=== PATIENT | male | born 1935 | race Caucasian/White ===

== ENCOUNTER 2018-04-05 10:39 | Inpatient (IN) | payer OTHER, MEDICAID ==
[~2018-04-05] VITALS: Ht 160 cm; Wt 63.5 kg
[2018-04-05 10:45] VITALS: BP 137/90
--- NOTE | 2018-04-05 10:52 | NUR ---
PT AMBULATES TO BED 12
--- NOTE | 2018-04-05 10:53 | NUR ---
82Y/F BIB FAMILY FOR C/O DIARRHEA AND "CRAMPING" ABD PAIN 6/10 FOR 3 DAYS. DENIES N/V/D; SKIN IS PINK/WARM/DRY; AAOX4 WITH EVEN AND STEADY GAIT; VSS; PATIENT POSITIONED FOR COMFORT; HOB ELEVATED; BEDRAILS UP X1; BED DOWN. ER MD MADE AWARE OF PT STATUS.
[2018-04-05] MEDS ORDERED: NACL 0.9% 1,000 ML IV SCH (11:44)
[2018-04-05] MEDS ORDERED: MORPHINE SULFATE 2 MG/ML SYR IVP ONE (11:45)
[2018-04-05] MEDS ORDERED: LEVOFLOXACIN 500 MG/D5W PREMIX 100 ML IV ONE (11:45)
[2018-04-05] MEDS ORDERED: ONDANSETRON 4 MG/2 ML VIAL IVP ONE (11:45)
[2018-04-05] MEDS ORDERED: KETOROLAC 15 MG/ML VIAL IVP ONE (11:45)
--- NOTE | 2018-04-05 11:49 | NUR ---
Patient being evaluated by physician at bedside.
--- NOTE | 2018-04-05 12:21 | NUR ---
PT TAKEN TO CT
--- NOTE | 2018-04-05 12:40 | NUR ---
PT BACK FROM CT
[2018-04-05 12:51] LABS: BASOPHILS # (AUTO) 0.1 K/uL (0.00-0.22); BASOPHILS % (AUTO) 1.2 % (0.0-2.0); EOSINOPHILS # (AUTO) 0.3 K/uL (0-0.4); EOSINOPHILS % (AUTO) 5.3 % (0.0-4.0); HEMATOCRIT 32.7 % (36-52); HEMOGLOBIN 11.1 g/dL (12.0-18.0); LYMPHOCYTES # (AUTO) 1.3 K/uL (2.0-11.5); LYMPHOCYTES % (AUTO) 20.9 % (20.5-51.1); MEAN CORPUSCULAR HEMOGLOBIN 32 pg (27-31); MEAN CORPUSCULAR HGB CONC 34 g/dL (33-37); MEAN CORPUSCULAR VOLUME 94.4 fL (80-94); MONOCYTES # (AUTO) 0.5 K/uL (0.8-1.0); MONOCYTES % (AUTO) 7.9 % (1.7-9.3); NEUTROPHILS % (AUTO) 64.7 % (42.2-75.2); PLATELET COUNT (AUTO) 209 K/uL (140-450); RED BLOOD CELL COUNT(AUTO) 3.46 MIL/uL (4.20-6.10); RED CELL DISTRIBUTION WIDTH 12.7 % (11.6-13.7); WHITE BLOOD COUNT (AUTO) 6.2 K/uL (4.8-10.8)
[2018-04-05 13:08] LABS: ALBUMIN 3.3 g/dL (3.4-5.0); AMYLASE 45 U/L (25-115); ANION GAP 8.4 (8-16); ASPARTATE AMINOTRANSFERASE 17 U/L (15-37); CARBON DIOXIDE 28.4 mmol/L (21-32); CHLORIDE 106 mmol/L (98-107); CREATININE 1.5 mg/dL (0.7-1.3); GLUCOSE 95 mg/dL (74-106); LIPASE 154 U/L (73-393); POTASSIUM 3.8 mmol/L (3.5-5.1); SODIUM SERUM 139 mmol/L (136-145); TOTAL BILIRUBIN 2.1 mg/dL (0.0-1.0); UREA NITROGEN, BLOOD 14 mg/dL (7-18)
--- NOTE | 2018-04-05 13:30 | NUR ---
Patient appears to be resting comfortably in bed.
[2018-04-05] MEDS ORDERED: ZOLPIDEM 5 MG TAB PO PRN (13:35)
[2018-04-05] MEDS ORDERED: ACETAMINOPHEN 325 MG TAB PO PRN (13:35)
[2018-04-05 13:41] LABS: ACETONE, SERUM NEGATIVE (NEGATIVE)
[2018-04-05 14:00] LABS: APPEARANCE,URINE CLEAR (CLEAR); BILIRUBIN,URINE NEGATIVE (NEGATIVE); BLOOD, URINE 1+ (NEGATIVE); COLOR,URINE YELLOW (YELLOW); LEUKOCYTE ESTERASE ,URINE NEGATIVE (NEGATIVE); NITRITE, URINE NEGATIVE (NEGATIVE); UGLUCOSE NEGATIVE (NEGATIVE)
[2018-04-05 14:06] LABS: PROTHROMBIN TIME 11.4 secs (10.8-13.4)
[2018-04-05 14:12] LABS: RBC,URINE 11-20 (MOD) /HPF (0-5); WBC,URINE 0-5 (RARE) /HPF (0-5)
--- NOTE | 2018-04-05 15:25 | NUR ---
Patient will be admitted to care of . Admited to MED SURG. Will go to room 110-A. Belongings list completed. Report to ALBA FINN.
[2018-04-05 15:50] VITALS: BP 125/86
--- NOTE | 2018-04-05 15:50 | NUR ---
PT BROUGHT IN FROM ER IN [facility], REPORT RECEIVED FROM ER EN, PT AWAKE ALERT, RESP EVEN UNLABORED ON ROOM AIR, SKIN WARM DRY COLRO WNL, PT ORIENTED TO ROOM AND FLOOR, VITALS TAKEN, PLAN OF CARE REVIEWED, DAUGHTER AT BEDSIDE, WILL CONTINUE TO MONITOR.
--- NOTE | 2018-04-05 16:10 | NUR ---
DR RANKIN NOTIFIED OF PT'S HEART RATE 45-50, BP 125/86, PT AWAKE ALERT DENIES CHEST PAIN, DENIES SOB, DENIES ANY CARDIAC HISTORY, DENIES TAKING ANY MEDS AT HOME.
[2018-04-05] MEDS: NACL 0.9% 500 ML IV SCH (17:19)
[2018-04-05 18:27] LABS: FREE T4 (FREE THYROXINE) 0.85 ng/dL (0.76-1.46); PHOSPHORUS 3.6 mg/dL (2.5-4.9); THYROID STIMULATING HORMONE 1.18 uIU/mL (0.34-3.74)
--- NOTE | 2018-04-05 19:30 | NUR ---
REPORT GIVEN TO LAUNDRY FOLDER NURSE, PT IN STABLE CONDITION.
--- NOTE | 2018-04-05 19:31 | NUR ---
RECEIVED REPORT AT PT BEDSIDE FROM DAY SHIFT RN, PT IS A/OX4, ON ROOM AIR, PAKISTANI SPEAKING. RESPIRATIONS EVEN AND UNLABORED. PT SKIN IS INTACT, PT AMBULATES WITH STANDBY ASSISTANCE. 22G IV TO LEFT AC, ASYMPTOMATIC, INTACT AND PATENT. UPDATED BOARD. DISCUSSED PLAN OF CARE WITH PT, PT VERBALIZED UNDERSTANDING. VITAL SIGNS WITHIN NORMAL LIMITS. PT STABLE, NO SIGNS OF DISTRESS NOTED AT THIS TIME. BED IN LOWEST POSITION, BED ALARM ON. CALL LIGHT WITHIN REACH, WILL CONTINUE TO MONITOR.
[2018-04-05 20:00] VITALS: BP 107/72
[2018-04-05] MEDS: metroNIDAZOLE 500 MG/NS PREMIX 100 ML IV SCH (20:54)
--- NOTE | 2018-04-05 21:00 | NUR ---
IV FLAGYL NOW INFUSING, PT TOLERATING WELL. NO SIGNS/SYMPTOMS OF ALLERGIC REACTION. NO SIGNS OF DISTRESS NOTED AT THIS TIME. BED IN LOWEST POSITION, BED ALARM ON. CALL LIGHT WITHIN REACH, WILL CONTINUE TO MONITOR.
[2018-04-06] VITALS (7 sets, daily range): BP systolic 101–111; BP diastolic 61–73
--- NOTE | 2018-04-06 | NUR ---
VITAL SIGNS WITHIN NORMAL LIMITS. PT STABLE, NO SIGNS OF DISTRESS NOTED AT THIS TIME. BED IN LOWEST POSITION, BED ALARM ON. CALL LIGHT WITHIN REACH, WILL CONTINUE TO MONITOR.
[2018-04-06] MEDS: metroNIDAZOLE 500 MG/NS PREMIX 100 ML IV SCH ×3 (05:57→20:15)
--- NOTE | 2018-04-06 06:00 | NUR ---
IV FLAGYL NOW INFUSING, PT TOLERATING WELL. NO SIGNS OF DISTRESS NOTED AT THIS TIME. BED IN LOWEST POSITION, BED ALARM ON. CALL LIGHT WITHIN REACH, WILL CONTINUE TO MONITOR.
[2018-04-06 07:17] LABS: BASOPHILS # (AUTO) 0.1 K/uL (0.00-0.22); BASOPHILS % (AUTO) 0.8 % (0.0-2.0); EOSINOPHILS # (AUTO) 0.4 K/uL (0-0.4); EOSINOPHILS % (AUTO) 6.8 % (0.0-4.0); HEMATOCRIT 31.5 % (36-52); HEMOGLOBIN 10.7 g/dL (12.0-18.0); LYMPHOCYTES # (AUTO) 1.3 K/uL (2.0-11.5); LYMPHOCYTES % (AUTO) 20.7 % (20.5-51.1); MEAN CORPUSCULAR HEMOGLOBIN 32 pg (27-31); MEAN CORPUSCULAR HGB CONC 34 g/dL (33-37); MEAN CORPUSCULAR VOLUME 94.6 fL (80-94); MONOCYTES # (AUTO) 0.6 K/uL (0.8-1.0); MONOCYTES % (AUTO) 9.5 % (1.7-9.3); NEUTROPHILS # (AUTO) 3.9 K/uL (1.8-7.7); NEUTROPHILS % (AUTO) 62.2 % (42.2-75.2); PLATELET COUNT (AUTO) 195 K/uL (140-450); RED BLOOD CELL COUNT(AUTO) 3.33 MIL/uL (4.20-6.10); WHITE BLOOD COUNT (AUTO) 6.3 K/uL (4.8-10.8)
--- NOTE | 2018-04-06 07:21 | NUR ---
ENDORSED PT, IN STABLE CONDITION, TO DAY SHIFT RN, FOR CONTINUITY OF CARE.
--- NOTE | 2018-04-06 08:00 | NUR ---
PATIENT ALERT AND ABLE TO MAKE NEEDS KNOWN. PALESTINIAN SPEAKING.A/OX4. NO ACUTE DISTRESS NOTED. NO SOB. RESP EVEN AND UNLABORED. LUNG SOUNDS CLEAR ON ROOM AIR. BOWEL SOUNDS ACTIVE X 4 QUADS. PATIENT WITH RAC 22G WITH NS RUNNING AT 10ML/HR.PATIENT ON REGULAR DIET. TOLERATING WELL. DENIES EPISODES OF DIARHEA OR PAIN THIS AM. SKIN INTACT. SON AT BEDSIDE. DISCUSSED PLAN OF CARE WITH PATIENT AT BEDSIDE. FREQUENT VISUAL CHECKS. CALL LIGHT WITHIN REACH. WILL CONT TO MONITOR.
[2018-04-06 08:07] LABS: ANION GAP 10.5 (8-16); CARBON DIOXIDE 28.7 mmol/L (21-32); CHLORIDE 107 mmol/L (98-107); CREATININE 1.7 mg/dL (0.7-1.3); GLUCOSE 85 mg/dL (74-106); POTASSIUM 4.2 mmol/L (3.5-5.1); SODIUM SERUM 142 mmol/L (136-145); UREA NITROGEN, BLOOD 17 mg/dL (7-18)
[2018-04-06 08:08] LABS: CHOL/HDL RATIO 2.6 (1-4.5); PHOSPHORUS 3.9 mg/dL (2.5-4.9)
--- NOTE | 2018-04-06 08:44 | NUR ---
PATIENT HAS BEEN SCREENED AND CATEGORIZED HIGH NUTRITION RISK. PATIENT WILL BE SEEN WITHIN 1-2 DAYS OF ADMISSION. 04/06/18 04/07/[address]
[2018-04-06] MEDS: LACTOBACILLUS RHAMNOSUS GG 1 EACH CAP PO SCH (08:50)
[2018-04-06] MEDS ORDERED: CLINICAL MONITORING MC SCH (09:00)
--- NOTE | 2018-04-06 10:30 | NUR ---
PATIENT IN BED WITH FAMILY AT BEDSIDE WATCHING TV. NO ACUTE DISTRESS NOTED. WILL CONT TO MONITOR.
--- NOTE | 2018-04-06 13:10 | NUR ---
PATIENT IN BED HAD LUNCH AND TOLERATED WELL. NO C/O GI DISTRESS. NO LOOSE STOOL. WILL CONT TO MONITOR.
[2018-04-06] MEDS: NACL 0.9% 500 ML IV SCH (13:31)
--- NOTE | 2018-04-06 14:00 | NUR ---
DR GOLDSTEIN IN UNIT TO SEE PATIENT WITH NEW ORDERS FOR COLLECTION OF STOOL FOR C DIFF TOXIN AND OCCULT BLOOD. PATIENT MADE AWARE. HAT PLACED IN RESTROOM FOR COLLECTION.
--- NOTE | 2018-04-06 15:29 | NUR ---
04/06/18 RD INITIAL ASSESSMENT COMPLETED PLEASE REFER TO NUTRITION ASSESSMENT UNDER CARE ACTIVITY FOR ESTIMATED NUTRITIONAL NEEDS. 1. CONTINUE REGULAR DIET TOLERATED 2. RECOMMEND ENSURE CLEAR TID 3. PROVIDE DIET EDUCATION ABOUT COLITIS 4. RD TO FOLLOW-UP 3-5 DAYS, MODERATE RISK ROMINA ABEL, BISI
--- NOTE | 2018-04-06 16:30 | NUR ---
COLLECTED C DIFF TOXIN AND OCCULT BLOOD SAMPLE MUSHY MEDIUM BROWN STOOL. NO MUCUS OR BLOOD NOTED. WILL CONT TO MONITOR.
--- NOTE | 2018-04-06 19:10 | NUR ---
ENDORSED REPORT TO NATIONAL SECRETARY NURSE AT BEDSIDE FOR CONTINUITY OF CARE. PATIENT STABLE.
--- NOTE | 2018-04-06 19:30 | NUR ---
RECEIVED REPORT FROM DAYSHIFT NURSE AT BEDSIDE FOR CONTINUITY OF CARE. PT AAOX4. PT SPEAKS GERMAN. IV NOTED RAC 22G NS 10ML/HR. PT IS ON BEDREST. BED LOWERED CALL LIGHT WITHIN REACH. WILL CONTINUE TO MONITOR.
--- NOTE | 2018-04-06 21:32 | NUR ---
PT AWARE OF NPO AFTER MIDNIGHT. WILL CONTINUE TO MONITOR.
[2018-04-07 04:00] VITALS: BP 102/69
[2018-04-07] MEDS: metroNIDAZOLE 500 MG/NS PREMIX 100 ML IV SCH ×2 (04:07→13:05)
[2018-04-07 06:55] LABS: BASOPHILS # (AUTO) 0.1 K/uL (0.00-0.22); EOSINOPHILS # (AUTO) 0.6 K/uL (0-0.4); EOSINOPHILS % (AUTO) 5.7 % (0.0-4.0); HEMATOCRIT 35.9 % (36-52); HEMOGLOBIN 12.3 g/dL (12.0-18.0); LYMPHOCYTES % (AUTO) 19.4 % (20.5-51.1); MEAN CORPUSCULAR HEMOGLOBIN 32 pg (27-31); MEAN CORPUSCULAR HGB CONC 34 g/dL (33-37); MEAN CORPUSCULAR VOLUME 93.8 fL (80-94); MONOCYTES # (AUTO) 0.7 K/uL (0.8-1.0); MONOCYTES % (AUTO) 6.6 % (1.7-9.3); NEUTROPHILS # (AUTO) 6.8 K/uL (1.8-7.7); NEUTROPHILS % (AUTO) 67.3 % (42.2-75.2); PLATELET COUNT (AUTO) 218 K/uL (140-450); RED BLOOD CELL COUNT(AUTO) 3.83 MIL/uL (4.20-6.10); RED CELL DISTRIBUTION WIDTH 12.8 % (11.6-13.7); WHITE BLOOD COUNT (AUTO) 10.1 K/uL (4.8-10.8)
[2018-04-07 07:18] LABS: ANION GAP 10.6 (8-16); CARBON DIOXIDE 30.6 mmol/L (21-32); CHLORIDE 106 mmol/L (98-107); CREATININE 1.7 mg/dL (0.7-1.3); GLUCOSE 97 mg/dL (74-106); POTASSIUM 4.2 mmol/L (3.5-5.1); SODIUM SERUM 143 mmol/L (136-145); UREA NITROGEN, BLOOD 16 mg/dL (7-18)
[2018-04-07 07:28] LABS: MAGNESIUM 1.9 mg/dL (1.8-2.4); PHOSPHORUS 3.4 mg/dL (2.5-4.9)
--- NOTE | 2018-04-07 07:31 | NUR ---
RECEIVED REPORT FROM NIGHTSHIFT NURSE AT BEDSIDE. PATIENT IS AWAKE AT THIS TIME . PATIENT IS ALERT AND ORIENTED X4. PATIENT'S SON AT BEDSIDE. NO DISTRESS NOTED. PATIENT DOES NOT COMPLAIN OF PAIN. PATIENT HAS AN IV ON RIGHT AC 22G INFUSING 10 ML NORMAL SALINE. UPDATED BOARD IN PATIENT'S ROOM. LOWERED BED TO LOWEST SETTING. PUT CALL LIGHT WITHIN REACH OF PATIENT. APPROPRIATE SIGNS OUTSIDE OF PATIENT'S ROOM. WILL CONTINUE TO MONITOR PATIENT.
--- NOTE | 2018-04-07 07:31 | NUR ---
ENDORSED PT REPORT TO DAYSHIFT NURSE FOR CONTINUITY OF CARE.
[2018-04-07 08:00] VITALS: BP 135/85
[2018-04-07] MEDS ORDERED: DEXT 5% /NACL 0.9% 1,000 ML IV SCH (08:10)
[2018-04-07] MEDS: LACTOBACILLUS RHAMNOSUS GG 1 EACH CAP PO SCH (08:36)
--- NOTE | 2018-04-07 08:36 | NUR ---
GAVE ALL AM MEDICATIONS. PATIENT TOLERATED WELL. WILL CONTINUE TO MONITOR PATIENT.
[2018-04-07] MEDS ORDERED: LEVOFLOXACIN 750 MG/D5W PREMIX 150 ML IV SCH (09:00)
[2018-04-07] MEDS ORDERED: POLYETHYLENE GLYCOL 17 GM/PKT PO SCH (09:00)
--- NOTE | 2018-04-07 10:01 | NUR ---
PATIENT IS AWAKE AT THIS TIME IN SEMI-FOWLERS POSITION. PATIENT FAMILY MEMBERS AT BEDSIDE. NO DISTRESS NOTED. WILL CONTINUE TO MONITOR PATIENT.
[2018-04-07 12:00] VITALS: BP 126/82
--- NOTE | 2018-04-07 12:25 | NUR ---
PATIENT IS AWAKE AT THIS TIME. NO DISTRESS NOTED. WILL CONTINUE TO MONITOR PATIENT.
[2018-04-07] MEDS ORDERED: METR250T2 PO (13:30)
[2018-04-07] MEDS ORDERED: LACT10CA PO (13:30)
--- NOTE | 2018-04-07 14:30 | NUR ---
OFFERED TO USE BLUE SYSTEM DISPATCHER PHONE FOR DISCHARGE INSTRUCTIONS BUT PATIENT REFUSED AND WOULD RATHER HAVE FAMILY TRANSLATE. PATIENT AWARE OF DISCHARGE INSTRUCTIONS AND PRESCRIPTIONS. PATIENT SIGNED ALL DISCHARGE PAPERS. DISCONTINUED PATIENT'S INTRAVENOUS LINE WITH CATHETER STILL INTACT. REMOVED TELE BOX OFF PATIENT. REMOVED PATIENT ID BAND. PATIENT AMBULATED OFF THE UNIT WITH FAMILY MEMBERS IN STABLE CONDITION. PATIENT LEFT WITH ALL BELONGINGS.
== END 2018-04-07 14:30 | disposition home or self-care (01) | DRG 391 ==
LOC: MED 10:39 → MTU 13:31
PROVIDERS: ADMIT General Practice; ATTEND General Practice
DX: K52.9 Noninfective gastroenteritis and colitis, unspecified (principal); N17.0 Acute kidney failure with tubular necrosis; E44.1 Mild protein-calorie malnutrition; N39.0 Urinary tract infection, site not specified; D64.9 Anemia, unspecified; E86.0 Dehydration; C61 Malignant neoplasm of prostate; Z68.24 Body mass index [BMI] 24.0-24.9, adult
CPT/HCPCS: 36415; 71045; 76700; 80048; 80053; 81001; 82009; 82150; 82247; 82248; 82272; 83036; 83690; 83735; 83880; 84100; 84439; 84443; 85025; 85610; 85730; 87040; 87081; 87086; 96365; 96375; 99285; J1885; J1956; J2270; J2405; J3490; J7030; J7042; Q0092

== ENCOUNTER 2018-11-13 18:30 | Emergency (ER) | payer OTHER ==
[~2018-11-13] VITALS: Ht 160 cm; Wt 59.9 kg
[~2018-11-13 18:30] MED LIST: LACT10CA PO; METR250T2 PO
[2018-11-13 18:38] VITALS: BP 144/109
[2018-11-13] MEDS ORDERED: ONDANSETRON 4 MG/2 ML VIAL IVP ONE ×2 (19:00→20:20)
[2018-11-13 19:23] LABS: BASOPHILS % (AUTO) 0.1 % (0.0-2.0); EOSINOPHILS # (AUTO) 0.2 K/uL (0-0.4); EOSINOPHILS % (AUTO) 1.2 % (0.0-4.0); HEMATOCRIT 35.7 % (36-52); HEMOGLOBIN 11.5 g/dL (12.0-18.0); LYMPHOCYTES # (AUTO) 0.8 K/uL (2.0-11.5); LYMPHOCYTES % (AUTO) 6.3 % (20.5-51.1); MEAN CORPUSCULAR HEMOGLOBIN 31 pg (27-31); MEAN CORPUSCULAR HGB CONC 32 g/dL (33-37); MEAN CORPUSCULAR VOLUME 95.8 fL (80-94); MONOCYTES # (AUTO) 0.5 K/uL (0.8-1.0); NEUTROPHILS # (AUTO) 11.4 K/uL (1.8-7.7); NEUTROPHILS % (AUTO) 88.4 % (42.2-75.2); PLATELET COUNT (AUTO) 248 K/uL (140-450); RED BLOOD CELL COUNT(AUTO) 3.72 MIL/uL (4.20-6.10); RED CELL DISTRIBUTION WIDTH 12.9 % (11.6-13.7); WHITE BLOOD COUNT (AUTO) 12.9 K/uL (4.8-10.8)
[2018-11-13 19:34] LABS: ANION GAP 8.3 (8-16); CARBON DIOXIDE 30.5 mmol/L (21-32); CHLORIDE 105 mmol/L (98-107); CREATININE 1.7 mg/dL (0.7-1.3); GLUCOSE 132 mg/dL (74-106); POTASSIUM 3.8 mmol/L (3.5-5.1); SODIUM SERUM 140 mmol/L (136-145); UREA NITROGEN, BLOOD 19 mg/dL (7-18)
[2018-11-13 19:39] LABS: ALBUMIN 3.8 g/dL (3.4-5.0); ASPARTATE AMINOTRANSFERASE 27 U/L (15-37); LIPASE 143 U/L (73-393); TOTAL BILIRUBIN 1.5 mg/dL (0.0-1.0)
[2018-11-13 19:47] LABS: CREATINE KINASE MB 1.5 ng/mL (0-3.6)
[2018-11-13 19:48] LABS: PROTHROMBIN TIME 10.4 secs (10.8-13.4)
[2018-11-13] MEDS ORDERED: levETIRAcetam 1,000 MG in NACL 0.9% 100 ML IV ONE (20:15)
[2018-11-13] MEDS ORDERED: fentaNYL 0.05 MG/ML VIAL IVP ONE (20:20)
[2018-11-13] MEDS ORDERED: levETIRAcetam 100 MG/ML VIAL IV ONE (20:22)
[2018-11-13 20:51] VITALS: BP 138/89
== END 2018-11-13 20:52 | disposition short-term general hospital (02) ==
LOC: MED 18:30
DX: I61.8 Other nontraumatic intracerebral hemorrhage (principal); I60.9 Nontraumatic subarachnoid hemorrhage, unspecified; Z79.899 Other long term (current) drug therapy
CPT/HCPCS: 36415; 70450; 71045; 80053; 82550; 82553; 82948; 83690; 84484; 85025; 85610; 85730; 93005; 96365; 96375; 96376; 99291; J1953; J2405; J3010; 99284